=== PATIENT | female | born 1935 | race Caucasian/White ===

== ENCOUNTER 2017-02-22 19:42 | Emergency (ER) | payer OTHER, MEDICARE ==
[~2017-02-22 19:42] MED LIST: BLEPH-10 5 ML5 ML OD; CRESTOR 5MG5 MG PO; DICLOFENAC SOD OD
--- NOTE | 2017-02-22 20:45 | RADIOLOGY REPORT ---
EXAMINATION: XR LEFT FOOT AND LEFT ANKLE CLINICAL INFORMATION: Left foot and left ankle pain and swelling. COMPARISON: Plain films of the left foot 03/12/2016. TECHNIQUE: AP, lateral and oblique views of the left foot and left ankle. FINDINGS: Left ankle: No acute fracture or dislocation of the left ankle. Moderate soft tissue swelling along the anteromedial aspect of the left ankle joint. The ankle mortise is intact. Incidental note is made of a small inferior calcaneal heel spur at the site of insertion of the plantar aponeurosis. Left foot: No acute fracture or dislocation of the left foot. No periosteal reaction is identified. There are mild cortical erosions along the medial aspect of the first metatarsal head as well as along the base of the left fifth metatarsal bone. These likely reflect underlying degenerative changes. No radiopaque foreign bodies. IMPRESSION: No acute fracture or dislocation of the left foot or left ankle. There is moderate soft tissue swelling along the anteromedial aspect of the left ankle joint.
[2017-02-22] MEDS ORDERED: CRESTOR5 M1 PO (20:51)
[2017-02-22] MEDS ORDERED: VITAMIN D1000 UNIT PO (20:52)
[2017-02-22] MEDS ORDERED: CALCIUM 500 +1 EAC5 PO (20:52)
[2017-02-22] MEDS ORDERED: KRILL OIL500 MG PO (20:52)
--- NOTE | 2017-02-22 21:02 | ED ANKLE/FOOT INJURY COMPLAINT ---
History of Present Illness General Chief Complaint: Fall Stated Complaint: FALL /LEFT FOOT PAIN Source: patient Exam Limitations: no limitations Vital Signs & Intake/Output Vital Signs & Intake/Output Vital Signs Date Time Temp Pulse Resp B/P Pulse O2 O2 Flow FiO2 Ox Delivery Rate 02/22 2119 98.0 88 16 146/82 98 Room Air 02/22 2031 Room Air 02/22 1947 97.2 88 22 154/84 98 Allergies Coded Allergies: erythromycin base (N/V DIARRHEA 02/22/17) Reconcile Medications Calcium Carbonate/Vitamin D3 (Calcium 500 + D Tablet) (Unknown Strength) TABLET (Unknown Dose) PO DAILY SUPPLEMENT (Reported) Cholecalciferol (Vitamin D3) (Vitamin D) 1,000 UNIT TABLET 1 TAB PO DAILY SUPPLEMENT (Reported) Krill Oil (Unknown Strength) CAPSULE (Unknown Dose) PO DAILY SUPPLEMENT ( Reported) Rosuvastatin Calcium (Crestor) 5 MG TABLET 1 TAB PO EOD CHOLESTEROL (Reported ) Triage Note: PER PT L FOOT FELL ASLEEP, AND WENT TO [facility] AND FELT IT PAIN. SWELLING INCREASED PAIN PUT ON BOOT FROM PREVIOUS INJURY. Triage Nurses Notes Reviewed? yes Occurred: just prior to arrival Duration: hour(s):, constant, continues in ED Timing: recent history Severity: moderate, severe Pain/Injury Location: Left: Foot, Ankle. Method of Injury: twisted No Modifying Factors: none HPI: 81-year-old female comes into emergency room for further evaluation of left foot ankle pain. Patient reports that she had twisted and fell and hurt her ankle. Denies any injury or trauma anywhere else on her body. Denies any other associated symptoms. Pain is sharp. Continuous. Nonradiating. (AYDIN BENEDICT) Past History Travel History Traveled to [place] past 21 day No Medical History Any Pertinent Medical History? see below for history Neurological: NONE EENT: NONE Cardiovascular: HYPOTENSION Respiratory: NONE Gastrointestinal: NONE Hepatic: NONE Renal: NONE Musculoskeletal: NONE Psychiatric: NONE Endocrine: NONE Blood Disorders: NONE Cancer(s): breast cancer FUNERAL DIRECTOR/EMBALMER/Reproductive: NONE Tetanus Vaccine: 10/20/14 Surgical History Surgical History: non-contributory Psychosocial History What is your primary language Irish Tobacco Use: Never used Family History Hx Contributory? No (AYDIN BENEDICT) Review of Systems Review of Systems Constitutional: Reports: no symptoms. EENTM: Reports: no symptoms. Respiratory: Reports: no symptoms. Cardiovascular: Reports: no symptoms. GI: Reports: no symptoms. Genitourinary: Reports: no symptoms. Musculoskeletal: Reports: see HPI. Skin: Reports: no symptoms. Neurological/Psychological: Reports: no symptoms. Hematologic/Endocrine: Reports: no symptoms. Immunologic/Allergic: Reports: no symptoms. All Other Systems: Reviewed and Negative (AYDIN BENEDICT) Physical Exam Physical Exam General Appearance: well developed/nourished, mild distress Head: atraumatic Eyes: Bilateral: normal appearance. Ears, Nose, Throat: normal ENT inspection, hearing grossly normal Neck: normal inspection Cardiovascular/Respiratory: no respiratory distress Back: normal inspection Leg/Knee/Thigh Left: normal range of motion Ankle Left: soft tissue tenderness, swelling, limited range of motion Foot Left: limited range of motion, soft tissue tenderness, swelling Neuro/Vascular: normal motor function, normal sensation Tendon: normal tendon function Psychiatric: awake, alert, oriented x 3 Skin: intact, normal color, warm/dry (AYDIN BENEDICT) Progress Differential Diagnosis: fracture, dislocation, sprain, contusion Plan of Care: 02/22/2017 10:44:00 PM Patient clinically looks well. Nontoxic-appearing. No evidence of acute fracture. Patient already has an orthopedic boot she's getting use. Denies any other associated symptoms. Diagnostic Imaging: Viewed by Me: Radiology Read. Discussed w/RAD: Radiology Read. Radiology Impression: SERVICE DATE: 02/22/17 EXAM TYPE: RAD - XRY-ANKLE 3 OR MORE VIEWS L; XRY-FOOT COMPLETE, LEFT EXAMINATION: XR LEFT FOOT AND LEFT ANKLE CLINICAL INFORMATION: Left foot and left ankle pain and swelling. COMPARISON: Plain films of the left foot 03/12/2016. TECHNIQUE: AP, lateral and oblique views of the left foot and left ankle. FINDINGS: Left ankle: No acute fracture or dislocation of the left ankle. Moderate soft tissue swelling along the anteromedial aspect of the left ankle joint. The ankle mortise is intact. Incidental note is made of a small inferior calcaneal heel spur at the site of insertion of the plantar aponeurosis. Left foot: No acute fracture or dislocation of the left foot. No periosteal reaction is identified. There are mild cortical erosions along the medial aspect of the first metatarsal head as well as along the base of the left fifth metatarsal bone. These likely reflect underlying degenerative changes. No radiopaque foreign bodies. IMPRESSION: No acute fracture or dislocation of the left foot or left ankle. There is moderate soft tissue swelling along the anteromedial aspect of the left ankle joint. DICTATED BY: ALFONSO DUNNE MD DATE/TIME DICTATED:02/22/172038 [employer] SAL[employer]OCIATE:LINETTE DATE/TIME TRANSCRIBED:02/22/172038 (AYDIN BENEDICT) Departure Departure Disposition: HOME OR SELF CARE Condition: Stable Clinical Impression Primary Impression: Left ankle sprain Referrals: Amy ALICIA MD (PCP/Family) Additional Instructions: Ice. Rest. Motrin for pain. Elevation. Follow-up with orthopedic doctor provided if not better in 3-5 days. If symptoms do not improve you'll require further evaluation with possible repeat x-rays as well as evaluation by word processing specialist. Sprains can last anywhere from days to weeks. No high impact running or jumping if you have an ankle sprain or any type of lower extremity sprain. Return to normal activity only after symptoms have resolved. Please go over all results of today's visit with your primary care doctor. Contact your primary care doctor to let them know you were here in the emergency room. There may be nonspecific findings which may not be related to your visit today here in the emergency room but may require further evaluation and chronic monitoring by your primary care doctor. If you had a laceration today the chance of foreign body always remains. You should follow-up with your primary care doctor for recheck in 3-5 days for a wound check. If you had an x-ray done there is a chance that a fracture could have been missed on initial read and you should follow-up with your primary care doctor for repeat x-rays if symptoms persist. If your blood pressure was elevated here in the emergency room please have rechecked by her primary care doctor within the next 48 hours by your primary care doctor. If you were prescribed a narcotic here in the emergency room or any type of controlled substances you're not allowed to drive while taking this medication or operate any type of heavy machinery. Narcotics can make you feel lightheaded dizziness nausea and can cause constipation. You may need to product picker a stool softener. Thank you for choosing [facility] emergency room. Please return to the emergency room immediately if you have any other concerns worsening of symptoms. Departure Forms: Customer Survey General Discharge Information (AYDIN BENEDICT) PA/ECOLOGIST Co-Sign Statement Statement: ED Attending supervision documentation- x I saw and evaluated the patient. I have also reviewed all the pertinent lab results and diagnostic results. I agree with the findings and the plan of care as documented in the PA's/ECOLOGIST's documentation. [] I have reviewed the ED Record and agree with the PA's/ECOLOGIST's documentation. [] Additions or exceptions (if any) to the PAs/ECOLOGIST's note and plan are summarized below: [] (CAROLINA STEWART,MANOLO)
[2017-02-22 21:19] VITALS: BP 146/82
== END 2017-02-22 21:20 ==
LOC: ERH 19:42
DX: S93.402A Sprain of unspecified ligament of left ankle, initial encounter (principal); X58.XXXA Exposure to other specified factors, initial encounter; Y92.9 Unspecified place or not applicable; Y93.9 Activity, unspecified
CPT/HCPCS: 73610-LT; 73630-LT